=== PATIENT | female | born 1960 | race Hispanic/Latino ===

== ENCOUNTER → 2017-03-20 | Outpatient (CLI) | payer MEDICAID ==
[~2017-03-20] MED LIST: METF-526 PO
== END | disposition home or self-care (01) ==
LOC: RAH 08:17
PROVIDERS: ATTEND Internal Medicine Gastroenterology
DX: K74.69 Other cirrhosis of liver (principal); R16.1 Splenomegaly, not elsewhere classified
CPT/HCPCS: 76700

== ENCOUNTER → 2020-08-12 | Outpatient (CLI) | payer MEDICAID ==
[~2020-08-12] MED LIST changes: +CEFU500T67 PO; +DAPA10TA PO; +HYDR25TA PO; +LACT10SO9 PO; +LIDOCAINE HCL 4% LTA SOL 4 ML VIAL TP ONE; -METF-526 PO; +METF-527 PO; +QUET25TA34 PO; +TOPI100T37 PO
== END | disposition home or self-care (01) ==
LOC: WHH 13:09
PROVIDERS: ATTEND Family Medicine
DX: E11.622 Type 2 diabetes mellitus with other skin ulcer (principal); L89.152 Pressure ulcer of sacral region, stage 2; L98.491 Non-pressure chronic ulcer of skin of other sites limited to breakdown of skin; L89.312 Pressure ulcer of right buttock, stage 2; L98.411 Non-pressure chronic ulcer of buttock limited to breakdown of skin; R41.82 Altered mental status, unspecified; K72.90 Hepatic failure, unspecified without coma; G93.41 Metabolic encephalopathy; D69.6 Thrombocytopenia, unspecified; L02.31 Cutaneous abscess of buttock; K70.30 Alcoholic cirrhosis of liver without ascites; Z68.33 Body mass index [BMI] 33.0-33.9, adult
CPT/HCPCS: 99215; A4450; A6021; A6197

== ENCOUNTER 2020-12-20 16:59 | Inpatient (IN) | payer MEDICAID, OTHER ==
[~2020-12-20] VITALS: Ht 152.4 cm; Wt 83.8 kg
[~2020-12-20 16:59] MED LIST changes: -LIDOCAINE HCL 4% LTA SOL 4 ML VIAL TP ONE; -QUET25TA34 PO; +QUET25TA36 PO
[2020-12-20 17:16] LABS: BASOPHILS % (AUTO) 0.2 % (0.0-5.0); EOSINOPHILS % (AUTO) 0.7 % (0.0-8.0); HEMATOCRIT 25.5 % (36-48); LYMPHOCYTES % (AUTO) 4.8 % (21.0-51.0); MEAN CORPUSCULAR HEMOGLOBIN 20.7 pg (27.0-33.0); MEAN CORPUSCULAR HGB CONC 27.8 g/dL (32.0-36.0); MEAN CORPUSCULAR VOLUME 74.3 fL (79-99); MONOCYTES % (AUTO) 1.9 % (3.0-13.0); NEUTROPHILS % (AUTO) 91.9 % (40.0-77.0); PLATELET COUNT (AUTO) 61 K/uL (130-400); RED BLOOD CELL COUNT(AUTO) 3.43 MIL/uL (4.00-5.50); RED CELL DISTRIBUTION WIDTH 19.5 % (11.0-15.5); WHITE BLOOD COUNT (AUTO) 4.1 K/uL (4.8-10.8)
[2020-12-20 17:34] LABS: CREATININE 0.5 mg/dL (0.5-1.5); POTASSIUM 3.1 mmol/L (3.5-5.1)
[2020-12-20 17:39] LABS: ALBUMIN 3.1 g/dL (3.5-5.0); BILIRUBIN,TOTAL 2.6 mg/dL (0.2-1.0); TOTAL PROTEIN, SERUM 6.4 g/dL (6.0-8.3)
[2020-12-20 18:10] LABS: APPEARANCE,URINE Cloudy (CLEAR); BILIRUBIN,URINE Negative (NEGATIVE); COLOR,URINE Yellow (YELLOW); GLUCOSE, URINE (UA) 500 mg/dL (NEGATIVE); KETONES,URINE Negative (NEGATIVE); LEUKOCYTE ESTERASE ,URINE Negative (NEGATIVE); NITRATE,URINE Negative (NEGATIVE); OCCULT BLOOD,URINE Small (NEGATIVE); PH,URINE 8.5 (5.0-8.0); PROTEIN,URINE Negative (NEGATIVE)
[2020-12-20 18:50] LABS: RBC,URINE 0-1 /HPF (0-1)
[2020-12-20 18:51] LABS: AMORPHOUS SEDIMENT,UR Rare /LPF (None Seen); BACTERIA,URINE Few /HPF (None Seen); SQUAMOUS EPITHELIAL CELL,UR Few /HPF (0-2)
[2020-12-20] MEDS ORDERED: LACTULOSE 20 GM/30 ML UDCUP PO STA (18:51)
[2020-12-20] MEDS ORDERED: POTASSIUM BICARB/CIT AC 25 MEQ TABLET.EFF PO STA (18:51)
[2020-12-20 18:57] LABS: AMPHET/METH SCREEN,URINE NEGATIVE (NEGATIVE); BARBITURATE SCREEN, URINE NEGATIVE (NEGATIVE); BENZODIAZEPINES SCREEN,URINE NEGATIVE (NEGATIVE); CANNABINOID SCREEN,URINE NEGATIVE (NEGATIVE); COCAINE SCREEN,URINE NEGATIVE (NEGATIVE); OPIATE SCREEN,URINE NEGATIVE (NEGATIVE); PHENCYCLIDINE SCREEN,URINE NEGATIVE (NEGATIVE)
[2020-12-20] MEDS ORDERED: PANTOPRAZOLE 40 MG/VIAL IVP ONE (19:00)
[2020-12-20] MEDS ORDERED: LACTULOSE 20 GM/30 ML UDCUP ONE (20:09)
[2020-12-20] MEDS ORDERED: PANTOPRAZOLE 40 MG/VIAL ONE (20:10)
[2020-12-20] MEDS ORDERED: POTASSIUM BICARB/CIT AC 25 MEQ TABLET.EFF ONE (20:10)
[2020-12-20] MEDS ORDERED: IBUPROFEN 400 MG TABLET ONE (20:10)
[2020-12-20] MEDS ORDERED: 0.9% NACL 500ML IV.SOLN 500 ML IV STA (20:33)
[2020-12-20] MEDS ORDERED: ONDANSETRON 4MG INJ IV PRN (21:30)
[2020-12-20] MEDS ORDERED: THIAMINE HCL 100 MG/ML 2ML VIAL ONE (21:30)
[2020-12-20] MEDS ORDERED: LIDOCAINE HCL-MPF 1% 2ML VIAL IV PRN (21:30)
[2020-12-20] MEDS ORDERED: OCTREOTIDE ACETATE 1,250 MCG in 0.9% NACL 250ML 250 ML IV SCH (21:30)
[2020-12-20] MEDS ORDERED: M.V.I. IV [ADULT] 10 ML, FOLIC ACID 1 MG, THIAMINE HCL 100 MG in 0.9%NACL 1000ML 1,000 ML IV SCH (22:00)
[2020-12-20] MEDS: PANTOPRAZOLE 40MG INJ 80 MG in 0.9%NACL 100ML 100 ML IV SCH (22:42)
[2020-12-21] VITALS (7 sets, daily range): BP systolic 87–146; BP diastolic 47–77
[2020-12-21] MEDS ORDERED: LACTULOSE 20 GM/30 ML UDCUP PO PRN (00:30)
[2020-12-21 00:38] LABS: HEMATOCRIT 24.3 % (36-48)
[2020-12-21 05:10] LABS: HEMOGLOBIN A1C 7.2 % (4.0-6.0); INR 1.38 (0.85-1.15); PROTHROMBIN TIME 14.6 SEC (9.6-11.6)
[2020-12-21 05:11] LABS: BASOPHILS % (AUTO) 0.6 % (0.0-5.0); EOSINOPHILS % (AUTO) 0.6 % (0.0-8.0); HEMATOCRIT 24.8 % (36-48); LYMPHOCYTES % (AUTO) 8.4 % (21.0-51.0); MEAN CORPUSCULAR HGB CONC 27.8 g/dL (32.0-36.0); MEAN CORPUSCULAR VOLUME 75.4 fL (79-99); MONOCYTES % (AUTO) 5.3 % (3.0-13.0); NEUTROPHILS % (AUTO) 84.8 % (40.0-77.0); PLATELET COUNT (AUTO) 73 K/uL (130-400); RED BLOOD CELL COUNT(AUTO) 3.29 MIL/uL (4.00-5.50); RED CELL DISTRIBUTION WIDTH 19.7 % (11.0-15.5); WHITE BLOOD COUNT (AUTO) 3.6 K/uL (4.8-10.8)
[2020-12-21 05:12] LABS: PARTIAL THROMBOPLASTIN TIME 29.3 SEC (26.3-35.5)
[2020-12-21 05:15] LABS: CREATININE 0.6 mg/dL (0.5-1.5); MAGNESIUM 1.7 mg/dL (1.80-2.40); PHOSPHORUS 3.2 mg/dL (2.5-4.9); POTASSIUM 3.3 mmol/L (3.5-5.1)
[2020-12-21] MEDS: POTASSIUM CHLORIDE 20MEQ/100ML 100 ML IV PRN (06:55)
[2020-12-21] MEDS: PANTOPRAZOLE 40MG INJ 80 MG in 0.9%NACL 100ML 100 ML IV SCH ×3 (08:00→16:45)
[2020-12-21] MEDS ORDERED: METOPROLOL TARTRATE 1 MG/ML 5ML VIAL IV ONE (08:18)
[2020-12-21 08:21] LABS: ABG BASE EXCESS -2.6 mmol/L (-2.0-3.0); ABG HCO3 21.2 mmol/L (21.0-28.0); ABG OXYGEN SATURATION 96.8 % (95.0-99.0); ABG PCO2 33 mmHg (32-45)
[2020-12-21] MEDS ORDERED: ACETAMINOPHEN 500 MG TABLET ONE (08:22)
[2020-12-21 08:31] LABS: HEMATOCRIT 27.8 % (36-48); MEAN CORPUSCULAR HEMOGLOBIN 21.1 pg (27.0-33.0); MEAN CORPUSCULAR HGB CONC 27.3 g/dL (32.0-36.0); MEAN CORPUSCULAR VOLUME 77.2 fL (79-99); PLATELET COUNT (AUTO) 60 K/uL (130-400); RED CELL DISTRIBUTION WIDTH 19.9 % (11.0-15.5); WHITE BLOOD COUNT (AUTO) 3.6 K/uL (4.8-10.8)
[2020-12-21 08:41] LABS: CREATININE 0.8 mg/dL (0.5-1.5)
[2020-12-21] MEDS ORDERED: AMIODARONE 150MG VIAL IV STA (08:51)
[2020-12-21] MEDS ORDERED: ACETAMINOPHEN 500 MG TABLET PO SCH (08:54)
[2020-12-21] MEDS ORDERED: METOPROLOL TARTRATE 1 MG/ML 5ML VIAL IV SCH (08:54)
[2020-12-21] MEDS ORDERED: CEFTRIAXONE 1G VIAL IVP SCH (09:30)
[2020-12-21] MEDS: RIFAXIMIN 550 MG TABLET PO SCH ×2 (10:06→20:10)
[2020-12-21] MEDS ORDERED: AMIODARONE 150MG VIAL 150 MG in DEXTROSE 5%-WATER 100 ML IV SCH (10:30)
[2020-12-21] MEDS ORDERED: CEFTRIAXONE 2GM VIAL IVP SCH (10:30)
[2020-12-21] MEDS ORDERED: M.V.I. IV [ADULT] 10 ML, FOLIC ACID 1 MG, THIAMINE HCL 100 MG in 0.9%NACL 1000ML 1,000 ML IV NR (10:50)
[2020-12-21] MEDS ORDERED: PHARMACY COMMUNICATION MISC SCH ×2 (11:00→11:30)
[2020-12-21] MEDS ORDERED: MAGNESIUM 2GM PREMIX 50ML 50 ML IV PRN (11:00)
[2020-12-21] MEDS ORDERED: LORAZEPAM 2 MG/ML 1 ML VIAL IM PRN (11:00)
[2020-12-21] MEDS ORDERED: LORAZEPAM 2 MG/ML 1 ML VIAL IVP PRN ×2 (12:00)
[2020-12-21] MEDS ORDERED: PHARMACY COMMUNICATION MISC PRN (12:00)
[2020-12-21] MEDS ORDERED: ONDANSETRON 4MG INJ IV PRN (12:00)
[2020-12-21] MEDS ORDERED: COMPOUND IV REFRIGERATED 1 EACH IVSOLN MISC PRN (12:30)
[2020-12-21] MEDS: LACTULOSE 20 GM/30 ML UDCUP PO SCH ×2 (13:04→20:10)
[2020-12-21] MEDS ORDERED: 0.9%NACL 50ML 50 ML IV SCH (15:00)
[2020-12-21] MEDS ORDERED: ZOSYN 3.375GM+NS 50ML 3.38 GM in 0.9%NACL 50ML 50 ML IV SCH (15:00)
[2020-12-21] MEDS: ZOSYN 3.375GM +NS 50ML IV SCH ×2 (16:45→23:29)
[2020-12-21] MEDS ORDERED: RIFAXIMIN 200 MG TABLET PO SCH (21:00)
[2020-12-21] MEDS: ACETAMINOPHEN 325 MG TAB PO PRN (22:38)
[2020-12-21] MEDS ORDERED: ACETAMINOPHEN 325 MG TAB PO PRN (23:00)
[2020-12-22] VITALS (14 sets, daily range): BP systolic 80–151; BP diastolic 32–76
[2020-12-22] MEDS ORDERED: 0.9% NACL 500ML IV.SOLN 500 ML IV ONE (01:02)
[2020-12-22] MEDS: PANTOPRAZOLE 40MG INJ 80 MG in 0.9%NACL 100ML 100 ML IV SCH ×3 (04:07→19:46)
[2020-12-22 06:26] LABS: BASOPHILS % (AUTO) 0.2 % (0.0-5.0); EOSINOPHILS % (AUTO) 0.2 % (0.0-8.0); HEMATOCRIT 26.2 % (36-48); LYMPHOCYTES % (AUTO) 10.3 % (21.0-51.0); MEAN CORPUSCULAR HEMOGLOBIN 21.5 pg (27.0-33.0); MEAN CORPUSCULAR HGB CONC 27.5 g/dL (32.0-36.0); MEAN CORPUSCULAR VOLUME 78.2 fL (79-99); MONOCYTES % (AUTO) 8.1 % (3.0-13.0); NEUTROPHILS % (AUTO) 80.3 % (40.0-77.0); PLATELET COUNT (AUTO) 62 K/uL (130-400); RED BLOOD CELL COUNT(AUTO) 3.35 MIL/uL (4.00-5.50); RED CELL DISTRIBUTION WIDTH 19.8 % (11.0-15.5); WHITE BLOOD COUNT (AUTO) 4.6 K/uL (4.8-10.8)
[2020-12-22 06:48] LABS: ALBUMIN 2.4 g/dL (3.5-5.0); CREATININE 0.9 mg/dL (0.5-1.5); MAGNESIUM 2.3 mg/dL (1.80-2.40); POTASSIUM 3.7 mmol/L (3.5-5.1); TOTAL PROTEIN, SERUM 5.5 g/dL (6.0-8.3)
[2020-12-22] MEDS: ZOSYN 3.375GM +NS 50ML IV SCH ×3 (06:58→21:26)
[2020-12-22] MEDS ORDERED: FOLIC ACID 1 MG, THIAMINE HCL 100 MG in 0.9%NACL 1000ML 1,000 ML IV NR (09:00)
[2020-12-22] MEDS: THIAMINE HCL 100 MG/ML 2ML VIAL IM SCH (10:00)
[2020-12-22 10:41] LABS: HEMATOCRIT 27.4 % (36-48)
[2020-12-22] MEDS ORDERED: LIDOCAINE PF 100MG/5ML (2%) SYRINGE 5ML ONE (11:54)
[2020-12-22] MEDS ORDERED: PROPOFOL 10 MG/ML 20ML VIAL IV ONE (11:54)
[2020-12-22] MEDS: FOLIC ACID 1 MG TABLET PO SCH (13:30)
[2020-12-22] MEDS: RIFAXIMIN 550 MG TABLET PO SCH ×2 (13:30→21:26)
[2020-12-22] MEDS: MULTIVITAMIN TABLET PO SCH (13:30)
[2020-12-22] MEDS: LACTULOSE 20 GM/30 ML UDCUP PO SCH ×2 (14:12→21:26)
[2020-12-22 19:08] LABS: HEMATOCRIT 27.8 % (36-48)
[2020-12-23] MEDS: ACETAMINOPHEN 325 MG TAB PO PRN (00:45)
[2020-12-23 04:52] LABS: BASOPHILS % (AUTO) 0.2 % (0.0-5.0); LYMPHOCYTES % (AUTO) 18.5 % (21.0-51.0); MEAN CORPUSCULAR HGB CONC 28.5 g/dL (32.0-36.0); MEAN CORPUSCULAR VOLUME 77.2 fL (79-99); MONOCYTES % (AUTO) 10.1 % (3.0-13.0); PLATELET COUNT (AUTO) 70 K/uL (130-400); RED BLOOD CELL COUNT(AUTO) 3.37 MIL/uL (4.00-5.50); RED CELL DISTRIBUTION WIDTH 19.6 % (11.0-15.5); WHITE BLOOD COUNT (AUTO) 4.6 K/uL (4.8-10.8)
[2020-12-23] MEDS: ZOSYN 3.375GM +NS 50ML IV SCH ×3 (05:05→23:22)
[2020-12-23 05:14] LABS: ALBUMIN 2.5 g/dL (3.5-5.0); BILIRUBIN,TOTAL 1.9 mg/dL (0.2-1.0); CREATININE 0.6 mg/dL (0.5-1.5); TOTAL PROTEIN, SERUM 5.6 g/dL (6.0-8.3)
[2020-12-23 05:28] LABS: POTASSIUM 2.8 mmol/L (3.5-5.1)
[2020-12-23] MEDS: POTASSIUM CHLORIDE 20MEQ/100ML 100 ML IV PRN ×2 (05:37→13:22)
[2020-12-23] MEDS ORDERED: KCL 20 MEQ ERTAB PO ONE (07:06)
[2020-12-23] MEDS: LACTULOSE 20 GM/30 ML UDCUP PO SCH ×3 (07:09→20:07)
[2020-12-23] MEDS: MULTIVITAMIN TABLET PO SCH (07:09)
[2020-12-23] MEDS: FOLIC ACID 1 MG TABLET PO SCH (07:10)
[2020-12-23] MEDS: RIFAXIMIN 550 MG TABLET PO SCH ×2 (07:10→20:07)
[2020-12-23] MEDS: THIAMINE HCL 100 MG/ML 2ML VIAL IM SCH (07:10)
[2020-12-23] MEDS: PANTOPRAZOLE 40MG INJ 80 MG in 0.9%NACL 100ML 100 ML IV SCH (07:12)
[2020-12-23 07:17] LABS: HEPATITIS A ANTIBODY IGM Negative (Negative); HEPATITIS B CORE IGM Negative (Negative); HEPATITIS Bs ANTIGEN SCREEN P Negative (Negative)
[2020-12-23 08:11] VITALS: BP 113/63
[2020-12-23] MEDS: KCL 20 MEQ ERTAB PO SCH (11:06)
[2020-12-23] MEDS: CEFTRIAXONE 1G VIAL IVP SCH (11:06)
[2020-12-23 11:08] LABS: RETICULOCYTE % (AUTO) 0.81 % (0.42-2.23)
[2020-12-23 11:23] LABS: % IRON SATURATION 4.9 % (22-44)
[2020-12-23] MEDS ORDERED: PHARMACY COMMUNICATION MISC SCH (11:30)
[2020-12-23 11:51] LABS: THYROID STIMULATING HORMONE 0.17 uIU/mL (0.36-3.74)
[2020-12-23] MEDS ORDERED: IRON SUCROSE COMPLEX 300 MG in 0.9%NACL 50ML 50 ML IV SCH (14:30)
[2020-12-23] MEDS ORDERED: EPOETIN ALFA-EPBX (NON-ESRD) 10,000 UNIT/ML VIAL SQ SCH (14:30)
[2020-12-23] MEDS ORDERED: COMPOUND IV MISC 1 EACH IVSOLN MISC PRN (14:30)
[2020-12-23 17:13] VITALS: BP 133/64
[2020-12-23 19:00] VITALS: BP 129/50
[2020-12-24] VITALS: BP 104/36
[2020-12-24 04:00] VITALS: BP 96/41
[2020-12-24] MEDS: ZOSYN 3.375GM +NS 50ML IV SCH ×2 (07:14→14:44)
[2020-12-24 08:29] VITALS: BP 114/51
[2020-12-24] MEDS ORDERED: PANTOPRAZOLE 40 MG TAB DR PO SCH (09:00)
[2020-12-24] MEDS: MULTIVITAMIN TABLET PO SCH (09:28)
[2020-12-24] MEDS: FOLIC ACID 1 MG TABLET PO SCH (09:28)
[2020-12-24] MEDS: RIFAXIMIN 550 MG TABLET PO SCH (09:28)
[2020-12-24] MEDS: THIAMINE HCL 100 MG/ML 2ML VIAL IM SCH (09:28)
[2020-12-24] MEDS: LACTULOSE 20 GM/30 ML UDCUP PO SCH ×2 (09:29→13:00)
[2020-12-24] MEDS: KCL 20 MEQ ERTAB PO SCH (09:31)
[2020-12-24] MEDS: CEFTRIAXONE 1G VIAL IVP SCH (09:31)
[2020-12-24 10:01] LABS: BASOPHILS % (AUTO) 0.3 % (0.0-5.0); EOSINOPHILS % (AUTO) 2.4 % (0.0-8.0); HEMATOCRIT 26.3 % (36-48); LYMPHOCYTES % (AUTO) 26.5 % (21.0-51.0); MEAN CORPUSCULAR HEMOGLOBIN 21.2 pg (27.0-33.0); MEAN CORPUSCULAR HGB CONC 28.5 g/dL (32.0-36.0); MEAN CORPUSCULAR VOLUME 74.5 fL (79-99); MONOCYTES % (AUTO) 10.1 % (3.0-13.0); PLATELET COUNT (AUTO) 65 K/uL (130-400); RED BLOOD CELL COUNT(AUTO) 3.53 MIL/uL (4.00-5.50); RED CELL DISTRIBUTION WIDTH 20.3 % (11.0-15.5); WHITE BLOOD COUNT (AUTO) 2.9 K/uL (4.8-10.8)
[2020-12-24 10:23] LABS: ALBUMIN 2.4 g/dL (3.5-5.0); BILIRUBIN,TOTAL 1.6 mg/dL (0.2-1.0); CREATININE 0.5 mg/dL (0.5-1.5); TOTAL PROTEIN, SERUM 5.6 g/dL (6.0-8.3)
[2020-12-24 10:34] LABS: POTASSIUM 2.8 mmol/L (3.5-5.1)
[2020-12-24 11:34] VITALS: BP 118/58
[2020-12-24 12:20] LABS: BASOPHILS % (MANUAL) 4 % (0-2); LYMPHOCYTES % (MANUAL) 16 % (22-44); MAN.DIFF COMMENT-IMPRESSION MANUAL DIFFERENTIAL; MONOCYTES % (MANUAL) 4 % (2-9); PLATELET MORPHOLOGY COMMENT DECREASED; SEGMENTED NEUTROPHILS % 76 % (40-70)
[2020-12-24] MEDS ORDERED: MIDODRINE HCL 5 MG TABLET PO SCH (14:30)
[2020-12-24] MEDS ORDERED: SPIRONOLACTONE 25 MG TAB PO SCH (14:30)
[2020-12-24] MEDS ORDERED: KCL 20 MEQ ERTAB PO SCH (14:30)
[2020-12-24] MEDS ORDERED: EPOETIN ALFA-EPBX (NON-ESRD) 10,000 UNIT/ML VIAL SQ SCH (15:00)
[2020-12-24] MEDS ORDERED: IRON SUCROSE COMPLEX 300 MG in 0.9%NACL 50ML 50 ML IV SCH (15:00)
[2020-12-24 17:03] VITALS: BP 141/68
[2020-12-24] MEDS ORDERED: LACTULOSE 20 GM/30 ML UDCUP PO SCH (21:00)
[2020-12-25] MEDS ORDERED: SPIRONOLACTONE 25 MG TAB PO SCH (09:00)
== END 2020-12-24 17:23 | DRG 720 ==
LOC: EDH 16:59 → EDHIP 17:00 → 3BH 23:59 → 2DH 12-21 09:17 → 4CH 12-23 02:46
PROVIDERS: ADMIT Internal Medicine; ATTEND Internal Medicine
PROC: 0DJ08ZZ Inspection of Upper Intestinal Tract, Via Natural or Artificial Opening Endoscopic (ICD-10-PCS; principal; 2020-12-22)
PROC: 30233N1 Transfusion of Nonautologous Red Blood Cells into Peripheral Vein, Percutaneous Approach (ICD-10-PCS; 2020-12-22)
DX: A41.51 Sepsis due to Escherichia coli [E. coli] (principal); K72.00 Acute and subacute hepatic failure without coma; K29.71 Gastritis, unspecified, with bleeding; D69.6 Thrombocytopenia, unspecified; D62 Acute posthemorrhagic anemia; E83.42 Hypomagnesemia; I47.1 Supraventricular tachycardia; K76.6 Portal hypertension; N39.0 Urinary tract infection, site not specified; K70.30 Alcoholic cirrhosis of liver without ascites; D64.9 Anemia, unspecified; E87.6 Hypokalemia; K70.40 Alcoholic hepatic failure without coma; E78.00 Pure hypercholesterolemia, unspecified; E11.9 Type 2 diabetes mellitus without complications; I10 Essential (primary) hypertension; Z20.822 Contact with and (suspected) exposure to COVID-19; K31.89 Other diseases of stomach and duodenum; E66.9 Obesity, unspecified; Z68.36 Body mass index [BMI] 36.0-36.9, adult; Z83.3 Family history of diabetes mellitus
CPT/HCPCS: 36415; 36430; 36600; 43235; 70450; 71045; 74176; 76705; 80048; 80053; 80074; 80305; 81001; 82140; 82270; 82435; 82607; 82746; 82803; 82947; 82948; 83036; 83540; 83550; 83605; 83690; 83735; 84100; 84132; 84145; 84295; 84443; 84484; 85014; 85018; 85025; 85027; 85045; 85610; 85730; 86850; 86900; 86901; 86923; 87040; 87077; 87088; 87186; 87635; 93005; A4606; C9113; G0378; J0696; J1756; J2001; J2060; J2354; J2405; J2543; J2704; J3411; J3475; J3480; J3490; J7030; J7040; J7050; P9016

== ENCOUNTER 2022-05-30 10:20 | Emergency (ER) | payer MEDICAID ==
[~2022-05-30] VITALS: Ht 162.6 cm; Wt 72.6 kg
[~2022-05-30 10:20] MED LIST changes: -CEFU500T67 PO; +DICY20TA2 PO; +FERR324T12 PO; -HYDR25TA PO; +PANT40TA PO; +RIFA550T PO
[2022-05-30 11:38] LABS: BASOPHILS % (AUTO) 0.6 % (0.0-5.0); EOSINOPHILS % (AUTO) 4.6 % (0.0-8.0); HEMATOCRIT 31.4 % (36-48); LYMPHOCYTES % (AUTO) 32.8 % (21.0-51.0); MEAN CORPUSCULAR HEMOGLOBIN 19.7 pg (27.0-33.0); MEAN CORPUSCULAR VOLUME 70.4 fL (79-99); MONOCYTES % (AUTO) 4.6 % (3.0-13.0); NEUTROPHILS % (AUTO) 57.1 % (40.0-77.0); PLATELET COUNT (AUTO) 101 K/uL (130-400); RED BLOOD CELL COUNT(AUTO) 4.46 MIL/uL (4.00-5.50); RED CELL DISTRIBUTION WIDTH 20.2 % (11.0-15.5); WHITE BLOOD COUNT (AUTO) 3.5 K/uL (4.8-10.8)
[2022-05-30 11:47] LABS: CREATININE 0.4 mg/dL (0.5-1.5); POTASSIUM 4.1 mmol/L (3.5-5.1)
[2022-05-30 11:52] LABS: ALBUMIN 3.1 g/dL (3.5-5.0); TOTAL PROTEIN, SERUM 6.8 g/dL (6.0-8.3)
[2022-05-30 11:56] LABS: INR 1.11 (0.85-1.15)
[2022-05-30 13:05] LABS: PLATELET MORPHOLOGY SLIGHT DECREASED
[2022-05-30] MEDS ORDERED: ACETAMINOPHEN 325 MG TAB PO ONE (13:30)
[2022-05-30 15:31] VITALS: BP 118/65
== END 2022-05-30 15:38 | disposition home or self-care (01) ==
LOC: EDH 10:20
DX: K74.60 Unspecified cirrhosis of liver (principal); E11.9 Type 2 diabetes mellitus without complications; M79.604 Pain in right leg; M79.605 Pain in left leg; Z79.899 Other long term (current) drug therapy; Z79.84 Long term (current) use of oral hypoglycemic drugs; Z98.890 Other specified postprocedural states
CPT/HCPCS: 36415; 80053; 82140; 85025; 85610; 86850; 86900; 86901

== ENCOUNTER 2023-02-26 20:54 | Emergency (ER) | payer MEDICAID ==
[~2023-02-26] VITALS: Ht 152.4 cm; Wt 54.4 kg
[2023-02-26 20:57] VITALS: BP 159/54; PULSE 89; RESP 20
[2023-02-26] MEDS ORDERED: IBUP-2784 PO (21:13)
[2023-02-26] MEDS ORDERED: ACETAMINOPHEN 500 MG TABLET PO ONE (21:30)
== END 2023-02-26 21:43 | disposition home or self-care (01) ==
LOC: EDH 20:54
DX: M25.561 Pain in right knee (principal); M25.562 Pain in left knee; I10 Essential (primary) hypertension; E11.9 Type 2 diabetes mellitus without complications; K21.9 Gastro-esophageal reflux disease without esophagitis; Z79.84 Long term (current) use of oral hypoglycemic drugs; Z79.899 Other long term (current) drug therapy; Z98.890 Other specified postprocedural states

== ENCOUNTER 2023-04-13 12:36 | Observation (INO) | payer MEDICAID ==
[~2023-04-13] VITALS: Ht 157.5 cm; Wt 85.0 kg
[~2023-04-13 12:36] MED LIST changes: +IBUP-2784 PO
[2023-04-13] MEDS ORDERED: ACETAMINOPHEN 500 MG TABLET PO ONE (13:30)
[2023-04-13 14:24] LABS: BASOPHILS # (AUTO) 0.02 K/uL (0.00-0.20); BASOPHILS % (AUTO) 0.6 % (0.0-5.0); EOSINOPHILS # (AUTO) 0.12 K/uL (0.00-0.70); EOSINOPHILS % (AUTO) 3.8 % (0.0-8.0); HEMATOCRIT 30.3 % (36-48); IMMATURE GRANULOCYTE ABSOLUTE 0.01 K/uL (0-1); LYMPHOCYTES # (AUTO) 1.2 K/uL (1.0-4.8); LYMPHOCYTES % (AUTO) 37.2 % (21.0-51.0); MEAN CORPUSCULAR HEMOGLOBIN 23.9 pg (27.0-33.0); MEAN CORPUSCULAR VOLUME 79.5 fL (79-99); MONOCYTES # (AUTO) 0.2 K/uL (0.1-1.0); MONOCYTES % (AUTO) 5.8 % (3.0-13.0); NEUTROPHILS # (AUTO) 1.6 K/uL (1.8-7.7); NEUTROPHILS % (AUTO) 52.3 % (40.0-77.0); PLATELET COUNT (AUTO) 92 K/uL (130-400); RED BLOOD CELL COUNT(AUTO) 3.81 MIL/uL (4.00-5.50); RED CELL DISTRIBUTION WIDTH 19.4 % (11.0-15.5); WHITE BLOOD COUNT (AUTO) 3.1 K/uL (4.8-10.8)
[2023-04-13 14:30] LABS: CREATININE 0.4 mg/dL (0.5-1.5); POTASSIUM 3.3 mmol/L (3.5-5.1)
[2023-04-13 14:34] LABS: ALBUMIN 3.1 g/dL (3.5-5.0); BILIRUBIN,TOTAL 1.7 mg/dL (0.2-1.0); TOTAL PROTEIN, SERUM 6.5 g/dL (6.0-8.3)
[2023-04-13 14:50] LABS: B-TYPE NATRIURETIC PEPTIDE 120 pg/mL (0-100)
[2023-04-13] MEDS ORDERED: ONDANSETRON 4MG INJ IV PRN (21:00)
[2023-04-13] MEDS ORDERED: NITROGLYCERIN 0.4 MG SL TAB SL PRN (21:00)
[2023-04-13] MEDS ORDERED: ACETAMINOPHEN 325 MG TAB PO PRN ×2 (21:00)
[2023-04-13] MEDS: FAMOTIDINE 20MG TAB PO SCH (21:14)
[2023-04-13] MEDS ORDERED: KCL 20 MEQ ERTAB PO PRN (21:30)
[2023-04-13] MEDS ORDERED: DEXTROSE 50%-WATER 50 ML DISP.SYRIN IV PRN (21:30)
[2023-04-13] MEDS ORDERED: POTASSIUM CHLORIDE 10% ELIXIR 20 MEQ/15 ML UDCUP PO PRN (21:30)
[2023-04-13] MEDS ORDERED: MAGNESIUM 2GM PREMIX 50ML 50 ML IV PRN (21:30)
[2023-04-13] MEDS ORDERED: GLUCAGON 1MG KIT 1 MG ML IM PRN (21:30)
[2023-04-13] MEDS ORDERED: POTASSIUM CHLORIDE 20MEQ/100ML 100 ML IV PRN (21:30)
[2023-04-13 22:55] VITALS: BP 110/61; PULSE 51; RESP 20
[2023-04-14] MEDS ORDERED: METF-891 PO (00:05)
[2023-04-14] MEDS ORDERED: HYDR25TA PO (00:05)
[2023-04-14] MEDS ORDERED: ERGO500093 PO (00:05)
[2023-04-14] MEDS ORDERED: POTA-202 PO (00:05)
[2023-04-14 04:00] VITALS: BP 102/66; PULSE 68; RESP 18
[2023-04-14 05:35] LABS: % IRON SATURATION 4.8 % (22-44)
[2023-04-14 07:29] LABS: BASOPHILS # (AUTO) 0.02 K/uL (0.00-0.20); BASOPHILS % (AUTO) 0.8 % (0.0-5.0); EOSINOPHILS # (AUTO) 0.13 K/uL (0.00-0.70); EOSINOPHILS % (AUTO) 5.2 % (0.0-8.0); HEMATOCRIT 29.3 % (36-48); LYMPHOCYTES % (AUTO) 38.6 % (21.0-51.0); MEAN CORPUSCULAR HEMOGLOBIN 23.7 pg (27.0-33.0); MEAN CORPUSCULAR VOLUME 81.8 fL (79-99); MONOCYTES # (AUTO) 0.2 K/uL (0.1-1.0); MONOCYTES % (AUTO) 6.4 % (3.0-13.0); NEUTROPHILS # (AUTO) 1.2 K/uL (1.8-7.7); PLATELET COUNT (AUTO) 85 K/uL (130-400); RED BLOOD CELL COUNT(AUTO) 3.58 MIL/uL (4.00-5.50); RED CELL DISTRIBUTION WIDTH 19.6 % (11.0-15.5); WHITE BLOOD COUNT (AUTO) 2.5 K/uL (4.8-10.8)
[2023-04-14] MEDS: INSULIN HUMULIN R 100 UNIT/ML 3ML SQ SCH ×2 (07:30→12:44)
[2023-04-14 07:40] LABS: ALBUMIN 2.8 g/dL (3.5-5.0); BILIRUBIN,TOTAL 1.4 mg/dL (0.2-1.0); CREATININE 0.5 mg/dL (0.5-1.5); POTASSIUM 3.6 mmol/L (3.5-5.1); TOTAL PROTEIN, SERUM 6.1 g/dL (6.0-8.3)
[2023-04-14 08:00] VITALS: BP 110/59; PULSE 76; RESP 18; O2SAT 96
[2023-04-14] MEDS: FAMOTIDINE 20MG TAB PO SCH (08:45)
[2023-04-14] MEDS ORDERED: LACTULOSE 20 GM/30 ML UDCUP PO SCH (09:00)
[2023-04-14 09:49] LABS: BAND NEUTROPHILS % (MANUAL) 8 % (0-2); EOSINOPHILS % (MANUAL) 4 % (1-6); LYMPHOCYTES % (MANUAL) 31 % (22-44); MAN.DIFF COMMENT-IMPRESSION MANUAL DIF; MONOCYTES % (MANUAL) 3 % (2-9); PLATELET MORPHOLOGY COMMENT DECREASED; SEGMENTED NEUTROPHILS % 54 % (40-70); TOTAL CELLS COUNTED 100; WBC MORPHOLOGY CONSISTENT W/DIFF
== END 2023-04-14 17:00 | disposition home or self-care (01) ==
LOC: EDH 13:14 → EDHIP 13:15 → INTOOBSV 13:15 → 3DH 21:59
PROVIDERS: ADMIT Internal Medicine; ATTEND Internal Medicine
DX: S00.83XA Contusion of other part of head, initial encounter (principal); D61.818 Other pancytopenia; K70.30 Alcoholic cirrhosis of liver without ascites; R79.89 Other specified abnormal findings of blood chemistry; E66.9 Obesity, unspecified; F20.9 Schizophrenia, unspecified; I10 Essential (primary) hypertension; E11.9 Type 2 diabetes mellitus without complications; K76.82 Hepatic encephalopathy; M19.90 Unspecified osteoarthritis, unspecified site; Z68.34 Body mass index [BMI] 34.0-34.9, adult; Z79.84 Long term (current) use of oral hypoglycemic drugs; Y04.0XXA Assault by unarmed brawl or fight, initial encounter; Y93.89 Activity, other specified; Y92.149 Unspecified place in prison as the place of occurrence of the external cause; Y99.8 Other external cause status
CPT/HCPCS: 99285; 84484 ×3; 80053 ×2; 83880; 85025 ×2; 82948 ×3; 36415 ×2; 71045; 70450; 72125; 70486; 93005; 96372; 83540; 83550; G0378 ×4

== ENCOUNTER 2023-08-06 13:13 | Emergency (ER) | payer MEDICAID ==
[~2023-08-06] VITALS: Ht 162.6 cm; Wt 81.6 kg
[~2023-08-06 13:13] MED LIST changes: -DICY20TA2 PO; +ERGO500093 PO; +HYDR25TA PO; -IBUP-2784 PO; -METF-527 PO; +METF-891 PO; +POTA-202 PO; -RIFA550T PO
[2023-08-06 13:42] LABS: BASOPHILS # (AUTO) 0.01 K/uL (0.00-0.20); BASOPHILS % (AUTO) 0.4 % (0.0-5.0); EOSINOPHILS # (AUTO) 0.11 K/uL (0.00-0.70); EOSINOPHILS % (AUTO) 4.3 % (0.0-8.0); HEMATOCRIT 30.8 % (36-48); IMMATURE GRANULOCYTE ABSOLUTE 0.01 K/uL (0-1); LYMPHOCYTES # (AUTO) 0.7 K/uL (1.0-4.8); LYMPHOCYTES % (AUTO) 25.5 % (21.0-51.0); MEAN CORPUSCULAR HEMOGLOBIN 24.5 pg (27.0-33.0); MEAN CORPUSCULAR HGB CONC 29.9 g/dL (32.0-36.0); MEAN CORPUSCULAR VOLUME 82.1 fL (79-99); MONOCYTES # (AUTO) 0.2 K/uL (0.1-1.0); MONOCYTES % (AUTO) 6.3 % (3.0-13.0); NEUTROPHILS # (AUTO) 1.6 K/uL (1.8-7.7); NEUTROPHILS % (AUTO) 63.1 % (40.0-77.0); PLATELET COUNT (AUTO) 102 K/uL (130-400); RED BLOOD CELL COUNT(AUTO) 3.75 MIL/uL (4.00-5.50); RED CELL DISTRIBUTION WIDTH 18.3 % (11.0-15.5); WHITE BLOOD COUNT (AUTO) 2.6 K/uL (4.8-10.8)
[2023-08-06 14:02] LABS: CREATININE 0.7 mg/dL (0.5-1.0); POTASSIUM 3.7 mmol/L (3.5-5.1)
[2023-08-06 14:11] LABS: APPEARANCE,URINE CLEAR (CLEAR); BILIRUBIN,URINE NEGATIVE (NEGATIVE); COLOR,URINE YELLOW (YELLOW); GLUCOSE, URINE (UA) >=1000 mg/dL (NEGATIVE); KETONES,URINE NEGATIVE (NEGATIVE); LEUKOCYTE ESTERASE ,URINE NEGATIVE Leu/uL (NEGATIVE); NITRATE,URINE NEGATIVE (NEGATIVE); OCCULT BLOOD,URINE NEGATIVE (NEGATIVE); PROTEIN,URINE 10 mg/dL (NEGATIVE)
[2023-08-06 14:20] LABS: BACTERIA,URINE RARE /HPF (None Seen); HYALINE CASTS, URINE 26-50 /LPF (0-1 /LPF); MUCUS,URINE RARE LPF (None Seen); RBC,URINE 0-1 /HPF (0-1); SQUAMOUS EPITHELIAL CELL,UR RARE /HPF (0-2)
[2023-08-06 14:24] VITALS: BP 108/53; PULSE 76; RESP 16; O2SAT 98
[2023-08-06 14:43] LABS: BAND NEUTROPHILS % (MANUAL) 1 % (0-2); EOSINOPHILS % (MANUAL) 2 % (1-6); LYMPHOCYTES % (MANUAL) 19 % (22-44); MAN.DIFF COMMENT-IMPRESSION MANUAL DIFFERENTIAL; MONOCYTES % (MANUAL) 7 % (2-9); PLATELET MORPHOLOGY COMMENT ADEQUATE; REACTIVE LYMPHOCYTES 1 % (0-0); SEGMENTED NEUTROPHILS % 70 % (40-70); TOTAL CELLS COUNTED 100
== END 2023-08-06 15:44 | disposition left against medical advice (07) ==
LOC: EDH 13:13
DX: K74.60 Unspecified cirrhosis of liver (principal); Z79.84 Long term (current) use of oral hypoglycemic drugs; Z79.899 Other long term (current) drug therapy; Z98.890 Other specified postprocedural states
CPT/HCPCS: 36415; 80048; 81001; 82550; 85025

== ENCOUNTER 2023-11-12 10:55 | Inpatient (IN) | payer MEDICAID ==
[~2023-11-12] VITALS: Ht 160 cm; Wt 91.7 kg
[2023-11-12 11:50] LABS: BASOPHILS # (AUTO) 0.02 K/uL (0.00-0.20); BASOPHILS % (AUTO) 0.7 % (0.0-5.0); EOSINOPHILS # (AUTO) 0.06 K/uL (0.00-0.70); EOSINOPHILS % (AUTO) 2.1 % (0.0-8.0); HEMATOCRIT 31.9 % (36-48); IMMATURE GRANULOCYTE ABSOLUTE 0.01 K/uL (0-1); LYMPHOCYTES # (AUTO) 0.5 K/uL (1.0-4.8); LYMPHOCYTES % (AUTO) 17.4 % (21.0-51.0); MEAN CORPUSCULAR HEMOGLOBIN 25.5 pg (27.0-33.0); MEAN CORPUSCULAR HGB CONC 30.7 g/dL (32.0-36.0); MEAN CORPUSCULAR VOLUME 82.9 fL (79-99); MONOCYTES # (AUTO) 0.2 K/uL (0.1-1.0); MONOCYTES % (AUTO) 7.3 % (3.0-13.0); NEUTROPHILS # (AUTO) 2.1 K/uL (1.8-7.7); NEUTROPHILS % (AUTO) 72.2 % (40.0-77.0); RED BLOOD CELL COUNT(AUTO) 3.85 MIL/uL (4.00-5.50); RED CELL DISTRIBUTION WIDTH 21.2 % (11.0-15.5); WHITE BLOOD COUNT (AUTO) 2.9 K/uL (4.8-10.8)
[2023-11-12] MEDS: [UNRECOGNIZED DRUG - OTHER] IV ONE (11:53)
[2023-11-12 11:58] LABS: PLATELET COUNT (AUTO) 86 K/uL (130-400)
[2023-11-12 12:04] LABS: SARS-CoV-2, RNA, NAAT NEGATIVE SARS CoV-2 (NEGATIVE)
[2023-11-12 12:05] LABS: BILIRUBIN,DIRECT 0.5 mg/dL (0.0-0.3); CREATININE 0.8 mg/dL (0.5-1.0); POTASSIUM 3.1 mmol/L (3.5-5.1); TOTAL PROTEIN, SERUM 6.5 g/dL (6.0-8.3)
[2023-11-12 12:13] LABS: INFLUENZA TYPE A Negative For Type A (NEGATIVE); INFLUENZA TYPE B Negative For Type B (NEGATIVE)
[2023-11-12 12:14] LABS: RAPID GROUP A STREP positive (NEGATIVE)
[2023-11-12 12:39] LABS: ABG BASE EXCESS -3.1 mmol/L (-2.0-3.0); ABG HCO3 20.1 mmol/L (21.0-28.0); ABG OXYGEN SATURATION 96.5 % (94.0-98.0); ABG PCO2 29 mmHg (32-45); ABG PH 7.453 (7.350-7.450); CARBON MONOXIDE 0.3 % (0.5-1.5); HHb 3.5; PO2, ARTERIAL BG 90.4 mmHg (83.0-108.0); VENT MODE, BG RA (ROOM AIR)
[2023-11-12 12:41] LABS: BAND NEUTROPHILS % (MANUAL) 1 % (0-2); LYMPHOCYTES % (MANUAL) 24 % (22-44); MONOCYTES % (MANUAL) 5 % (2-9); SEGMENTED NEUTROPHILS % 70 % (40-70); TOTAL CELLS COUNTED 100
[2023-11-12 12:42] LABS: MAN.DIFF COMMENT-IMPRESSION MANUAL DIFFERENTIAL; PLATELET MORPHOLOGY COMMENT DECREASED
[2023-11-12] MEDS: PoTASSium chloRIDE 10MEQ/100ML 100 ML IV ONE (12:52)
[2023-11-12] MEDS: 0.9%NACL 1000ML 1,000 ML IV ONE (13:50)
[2023-11-12] MEDS: cefTRIAXone 1G VIAL IVPB ONE (14:19)
[2023-11-12 14:58] LABS: ALCOHOL, BLOOD < 3 mg/dL (0-10)
[2023-11-12 14:59] LABS: AMMONIA 110 umol/L (11-32)
[2023-11-12] MEDS ORDERED: morPHINE 2 MG SYG IV PRN (15:00)
[2023-11-12] MEDS ORDERED: ondanSETRON 4MG INJ IV PRN (15:00)
[2023-11-12] MEDS ORDERED: acetaMINOPHEN 325 MG TAB PO PRN (15:00)
[2023-11-12] MEDS ORDERED: acetaMINOPHEN WITH coDEINE 1 TAB TAB PO PRN ×2 (15:00)
[2023-11-12 15:27] LABS: APPEARANCE,URINE CLEAR (CLEAR); BILIRUBIN,URINE NEGATIVE (NEGATIVE); COLOR,URINE YELLOW (YELLOW); GLUCOSE, URINE (UA) >=1000 mg/dL (NEGATIVE); KETONES,URINE NEGATIVE (NEGATIVE); LEUKOCYTE ESTERASE ,URINE NEGATIVE Leu/uL (NEGATIVE); NITRATE,URINE NEGATIVE (NEGATIVE); OCCULT BLOOD,URINE SMALL (NEGATIVE); PH,URINE 6.5 (5.0-8.0); PROTEIN,URINE 20 mg/dL (NEGATIVE)
[2023-11-12 15:30] LABS: ADD UA MICROSCOPIC YES
[2023-11-12 15:32] LABS: BACTERIA,URINE RARE /HPF (None Seen); MUCUS,URINE RARE LPF (None Seen); SQUAMOUS EPITHELIAL CELL,UR RARE /HPF (0-2)
[2023-11-12 16:13] VITALS: O2SAT 100
[2023-11-12 16:20] VITALS: BP 133/64; PULSE 97; RESP 18; TEMP 98.5
[2023-11-12] MEDS: INSULIN humuLIN R 100 UNIT/ML 3ML SQ SCH (17:27)
[2023-11-12 20:00] VITALS: BP 130/61; PULSE 89; RESP 20; TEMP 99.9
[2023-11-12] MEDS: cefTRIAXone 1G VIAL IVPB SCH (21:23)
[2023-11-12] MEDS: FAMOTIDINE 20MG VIAL IV SCH (21:23)
[2023-11-12] MEDS: 0.9%NACL 1000ML 1,000 ML IV SCH (21:26)
[2023-11-13] VITALS (9 sets, daily range): BP systolic 112–144; BP diastolic 53–77; PULSE 84–107; RESP 17–20; TEMP 97.6–100.2; O2SAT 97–100
[2023-11-13] MEDS: LACTULOSE 20 GM/30 ML UDCUP PO ONE (01:19)
[2023-11-13 06:02] LABS: BASOPHILS # (AUTO) 0.02 K/uL (0.00-0.20); BASOPHILS % (AUTO) 0.9 % (0.0-5.0); EOSINOPHILS # (AUTO) 0.09 K/uL (0.00-0.70); EOSINOPHILS % (AUTO) 3.9 % (0.0-8.0); HEMATOCRIT 29.4 % (36-48); IMMATURE GRANULOCYTE ABSOLUTE 0.01 K/uL (0-1); LYMPHOCYTES # (AUTO) 0.7 K/uL (1.0-4.8); LYMPHOCYTES % (AUTO) 32.5 % (21.0-51.0); MEAN CORPUSCULAR HEMOGLOBIN 25.5 pg (27.0-33.0); MEAN CORPUSCULAR HGB CONC 29.6 g/dL (32.0-36.0); MEAN CORPUSCULAR VOLUME 86.2 fL (79-99); MONOCYTES # (AUTO) 0.2 K/uL (0.1-1.0); MONOCYTES % (AUTO) 7.9 % (3.0-13.0); NEUTROPHILS # (AUTO) 1.2 K/uL (1.8-7.7); NEUTROPHILS % (AUTO) 54.4 % (40.0-77.0); PLATELET COUNT (AUTO) 80 K/uL (130-400); RED BLOOD CELL COUNT(AUTO) 3.41 MIL/uL (4.00-5.50); RED CELL DISTRIBUTION WIDTH 21.2 % (11.0-15.5); WHITE BLOOD COUNT (AUTO) 2.3 K/uL (4.8-10.8)
[2023-11-13 06:19] LABS: HEMOGLOBIN A1C 7.8 % (4.0-6.0)
[2023-11-13 06:22] LABS: ALBUMIN 2.6 g/dL (3.5-5.0); BILIRUBIN,TOTAL 1.2 mg/dL (0.2-1.0); CREATININE 0.6 mg/dL (0.5-1.0); POTASSIUM 3.4 mmol/L (3.5-5.1); TOTAL PROTEIN, SERUM 5.6 g/dL (6.0-8.3)
[2023-11-13] MEDS ORDERED: INSULIN humuLIN R 100 UNIT/ML 3ML SQ SCH (07:30)
[2023-11-13] MEDS: PoTASSium chloRIDE 20MEQ ER 20 MEQ ERTAB PO SCH (09:43)
[2023-11-13] MEDS: LACTULOSE 20 GM/30 ML UDCUP PO SCH (09:43)
[2023-11-13] MEDS: MULTIVITAMIN TABLET PO SCH (09:43)
[2023-11-13] MEDS: topIRAMate 100 MG TAB PO SCH (09:43)
[2023-11-13] MEDS: hydroCHLOROthiazide 25 MG TABLET PO SCH (09:43)
[2023-11-13] MEDS: THIAMINE HCL 100 MG/ML 2ML VIAL IVP SCH (09:44)
[2023-11-13] MEDS ORDERED: PoTASSium chloRIDE 20MEQ/100ML 100 ML IV PRN (12:00)
[2023-11-13] MEDS ORDERED: MAGNESIUM 2GM PREMIX 50ML 50 ML IV PRN (12:00)
[2023-11-13] MEDS ORDERED: PoTASSium chl 10% ELIXIR 20MEQ 20 MEQ/15 ML UDCUP PO PRN (12:00)
[2023-11-13] MEDS: queTIAPine fuMARate 25 MG TAB PO SCH (20:39)
[2023-11-13] MEDS: PoTASSium chloRIDE 20MEQ ER 20 MEQ ERTAB PO ONE (20:39)
[2023-11-13] MEDS: acetaMINOPHEN 325 MG TAB PO PRN (20:40)
[2023-11-14] VITALS (7 sets, daily range): BP systolic 102–118; BP diastolic 55–72; PULSE 69–91; RESP 17–19; TEMP 98–98.3; O2SAT 98–99
[2023-11-14 05:17] LABS: BASOPHILS # (AUTO) 0.01 K/uL (0.00-0.20); BASOPHILS % (AUTO) 0.5 % (0.0-5.0); EOSINOPHILS # (AUTO) 0.12 K/uL (0.00-0.70); EOSINOPHILS % (AUTO) 5.6 % (0.0-8.0); HEMATOCRIT 28.6 % (36-48); LYMPHOCYTES # (AUTO) 0.9 K/uL (1.0-4.8); LYMPHOCYTES % (AUTO) 43.3 % (21.0-51.0); MEAN CORPUSCULAR HEMOGLOBIN 25.1 pg (27.0-33.0); MEAN CORPUSCULAR HGB CONC 29.7 g/dL (32.0-36.0); MEAN CORPUSCULAR VOLUME 84.4 fL (79-99); MONOCYTES # (AUTO) 0.2 K/uL (0.1-1.0); MONOCYTES % (AUTO) 8.8 % (3.0-13.0); NEUTROPHILS # (AUTO) 0.9 K/uL (1.8-7.7); NEUTROPHILS % (AUTO) 41.8 % (40.0-77.0); NUCLEATED RED BLOOD CELLS 0.9 % (0.0-0.19); PLATELET COUNT (AUTO) 89 K/uL (130-400); RED BLOOD CELL COUNT(AUTO) 3.39 MIL/uL (4.00-5.50); RED CELL DISTRIBUTION WIDTH 20.3 % (11.0-15.5); WHITE BLOOD COUNT (AUTO) 2.2 K/uL (4.8-10.8)
[2023-11-14 05:29] LABS: ALBUMIN 2.4 g/dL (3.5-5.0); CREATININE 0.5 mg/dL (0.5-1.0); POTASSIUM 3.1 mmol/L (3.5-5.1); TOTAL PROTEIN, SERUM 5.4 g/dL (6.0-8.3)
[2023-11-14] MEDS: PoTASSium chloRIDE 20MEQ ER 20 MEQ ERTAB PO PRN (05:34)
[2023-11-14] MEDS ORDERED: THIA500T3 PO (13:24)
[2023-11-14] MEDS ORDERED: LACT PO (13:27)
[2023-11-14] MEDS: MAGNESIUM CHLORIDE 64 MG TABLET.SA PO ONE (13:52)
[2023-11-15] MEDS ORDERED: ERGOCALCIFEROL (VITAMIN D2) 50,000 UNIT CAPSULE PO SCH (09:00)
== END 2023-11-14 14:30 | disposition home or self-care (01) | DRG 113 ==
LOC: EDH 10:55 → EDHIP 14:37 → 3BH 16:20
PROVIDERS: ADMIT Hospitalist; ATTEND Hospitalist
DX: J02.0 Streptococcal pharyngitis (principal); G93.41 Metabolic encephalopathy; D69.6 Thrombocytopenia, unspecified; E87.20 Acidosis, unspecified; E72.20 Disorder of urea cycle metabolism, unspecified; E11.65 Type 2 diabetes mellitus with hyperglycemia; Z20.822 Contact with and (suspected) exposure to COVID-19; E87.6 Hypokalemia; F03.90 Unspecified dementia, unspecified severity, without behavioral disturbance, psychotic disturbance, mood disturbance, and anxiety; I11.9 Hypertensive heart disease without heart failure; K70.30 Alcoholic cirrhosis of liver without ascites; G47.00 Insomnia, unspecified; E78.00 Pure hypercholesterolemia, unspecified; Z86.73 Personal history of transient ischemic attack (TIA), and cerebral infarction without residual deficits; Z79.899 Other long term (current) drug therapy
CPT/HCPCS: 36415; 36600; 71045; 80048; 80053; 80076; 81001; 82010; 82140; 82435; 82550; 82803; 82947; 82948; 83036; 83605; 83690; 83735; 84132; 84295; 84484; 85018; 85025; 87040; 87086; 87635; 87804; 87880; 96365; 96372; G0378; J0696; J1815; J3411; J3480; J3490